=== PATIENT | male | born 1935 | race Caucasian/White ===

== ENCOUNTER 2017-03-07 22:47 | Emergency (ER) | payer MEDICARE, OTHER ==
--- NOTE | 2017-03-08 | XRAY Preliminary Report ---
Exam: XR CHEST 2 VIEW PA/LAT IMPRESSION: Clear lungs. [facility] SITE ID: [id number]
--- NOTE | 2017-03-08 00:01 | XRAY Report ---
EXAM: CHEST RADIOGRAPHY EXAM DATE: 03/07/2017 11:50 PM. CLINICAL HISTORY: Cough and fever. COMPARISON: None. TECHNIQUE: 2 views. FINDINGS: Lungs/Pleura: No focal opacities evident. No pleural effusion. No pneumothorax. Normal volumes. Mediastinum: Normal heart size. Tortuous mildly calcified aorta. Other: Multiple left abdominal clips noted. No compression fractures. IMPRESSION: Clear lungs. [facility] Referring Provider Line: [phone] SITE ID: [id number]
[2017-03-08 00:03] LABS: BASOPHILS # (AUTO) 0.1 10^3/uL (0.0-0.1); BASOPHILS % (AUTO) 0.6 %; EOSINOPHILS # (AUTO) 0.1 10^3/uL (0.0-0.7); EOSINOPHILS % (AUTO) 0.6 %; HCT - HEMATOCRIT 47.2 % (42.0-52.0); HGB - HEMOGLOBIN 15.8 g/dL (14.0-18.0); LYMPHOCYTES # (AUTO) 2.9 10^3/uL (1.5-3.5); LYMPHOCYTES % (AUTO) 21.2 %; MEAN CORPUSCULAR HEMOGLOBIN 29.9 pg (27.0-31.0); MEAN CORPUSCULAR HGB CONC 33.5 g/dL (32.0-36.0); MEAN CORPUSCULAR VOLUME 89.3 fL (80.0-94.0); MONOCYTES # (AUTO) 1.5 10^3/uL (0.0-1.0); MONOCYTES % (AUTO) 10.5 %; NEUTROPHILS # (AUTO) 9.3 10^3/uL (1.5-6.6); NEUTROPHILS % (AUTO) 67.1 %; RED BLOOD COUNT 5.29 10^6/uL (4.70-6.10); RED CELL DISTRIBUTION WIDTH 14.5 % (12.0-15.0); UNCORRECTED WHITE BLOOD COUNT 13.8 x10^3/uL; WHITE BLOOD COUNT 13.8 x10^3/uL (4.8-10.8)
[2017-03-08 00:14] LABS: BILIRUBIN,URINE NEGATIVE (NEGATIVE)
[2017-03-08 00:15] LABS: ALBUMIN/GLOBULIN RATIO 1.7 (1.0-2.2); BILIRUBIN,TOTAL 0.4 mg/dL (0.2-1.0); CALCIUM 9.3 mg/dL (8.5-10.3); CREATININE 1.1 mg/dL (0.6-1.2); POTASSIUM 3.3 mmol/L (3.5-5.0); TOTAL PROTEIN 6.7 g/dL (6.7-8.2)
[2017-03-08 00:19] LABS: UA CHARGE (STRIP ONLY) YES; UR CULTURE IF IND NOT INDICATED
--- NOTE | 2017-03-08 00:45 | ED Physician Documentation ---
PD HPI URI - Stated complaint Stated Complaint: FEVER,NO SPLEEN - Chief complaint Chief Complaint: Fever - History obtained from History obtained from: Patient - History of Present Illness Timing - onset: How many days ago (4) Timing details: Gradual onset Associated symptoms: Fever, Nasal congestion, Rhinorrhea Contributing factors: Travel Similar symptoms before: Has not had sx before Recently seen: Not recently seen - Additional information Additional information: Patient is an 81 year old male with a history of lymphoma, status post splenectomy who is presenting to the emergency department for cough, cold and fever. According to patient and his the patient flew back from [place] on and monday they noticed some cough and sneezing. Family states that the symptoms have been fluctuating over the last few days. They called the recreation superintendent oncologist who suggested that the patient come in for evaluation. Review of Systems Constitutional: reports: Fever, Chills Eyes: denies: Discharge, Irritation Ears: denies: Ear pain, Drainage/discharge Nose: reports: Rhinorrhea / runny nose, Congestion, Sinus pressure / pain Throat: denies: Sore throat Cardiac: denies: Chest pain / pressure Respiratory: reports: Cough. 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, Asplenic PD PAST MEDICAL HISTORY - Past Medical History Past Medical History: Yes Cardiovascular: Hypertension, High cholesterol GI: GERD Other Past Medical History: Non-hodgkins lymphoma - Past Surgical History Past Surgical History: Yes General: Appendectomy, Splenectomy, Other Ortho: Hip replacement HEENT: Tonsil/Adenoidectomy - Allergies Allergies/Adverse Reactions: Allergies Allergy/AdvReac Type Severity Reaction Status Date / Time No Known Drug Allergies Allergy Verified 03/07/17 23:01 - Social History Does the pt smoke?: No Smoking Status: Never smoker Does the pt drink ETOH?: No Does the pt have substance abuse?: No - Immunizations Immunizations are current?: Yes - POLST Patient has POLST: No PD ED PE NORMAL - Vitals Vital signs reviewed: Yes - General General: Alert and oriented X 3, No acute distress, Well developed/nourished - HEENT HEENT: Atraumatic, PERRL, Ears normal, Moist mucous membranes - Neck Neck: Supple, no meningeal sign, No JVD - Cardiac Cardiac: RRR, No murmur - Respiratory Respiratory: No respiratory distress - Abdomen Abdomen: Non tender, Non distended - Derm Derm: Normal color, Warm and dry, No rash - Extremities Extremities: No deformity - Neuro Neuro: Alert and oriented X 3, No motor deficit, No sensory deficit, Normal speech - Psych Psych: Normal mood PD ED PE EXPANDED - HEENT HEENT: Nasal congestion, Rhinorrhea Results - Vitals Vitals: Vital Signs - 24 hr 03/07/17 03/08/17 22:54 00:56 Temperature 37.4 C 36.9 C Heart Rate 84 78 Respiratory 17 18 Rate Blood Pressure 161/84 H 138/68 H O2 Saturation 96 97 Oxygen O2 Source Room air - Labs Labs: Laboratory Tests 03/07/17 03/07/17 03/07/17 23:45 23:45 23:52 WBC 13.8 H RBC 5.29 Hgb 15.8 Hct 47.2 MCV 89.3 MCH 29.9 MCHC 33.5 RDW 14.5 Plt Count 213 MPV 9.0 Neut # 9.3 H Lymph # 2.9 Taylor # 1.5 H Eos # 0.1 Baso # 0.1 Absolute Nucleated RBC 0.01 Nucleated RBC % 0.0 Sodium Potassium Chloride Carbon Dioxide Anion Gap BUN Creatinine Estimated GFR (MDRD) Glucose Lactic Acid Calcium Total Bilirubin AST ALT Alkaline Phosphatase Total Protein Albumin Globulin Albumin/Globulin Ratio Lipase Urine Color YELLOW Urine Clarity CLEAR Urine pH 6.0 Ur Specific [place] 1.015 Urine Protein NEGATIVE Urine Glucose (UA) NEGATIVE Urine Ketones NEGATIVE Urine Occult Blood TRACE-INTA Urine Nitrite NEGATIVE Urine Bilirubin NEGATIVE Urine Urobilinogen 0.2 (NORMAL) Ur Leukocyte Esterase NEGATIVE Ur Microscopic Review NOT INDICATED Urine Culture Comments NOT INDICATED Influenza A (Rapid) POSITIVE H Influenza B (Rapid) Negative Influenza Types A,B Ag + H 03/07/17 03/07/17 23:52 23:52 WBC RBC Hgb Hct MCV MCH MCHC RDW Plt Count MPV Neut # Lymph # Taylor # Eos # Baso # Absolute Nucleated RBC Nucleated RBC % Sodium 131 L Potassium 3.3 L Chloride 95 L Carbon Dioxide 25 Anion Gap 11.0 BUN 17 Creatinine 1.1 Estimated GFR (MDRD) 64 L Glucose 124 H Lactic Acid 0.9 Calcium 9.3 Total Bilirubin 0.4 AST 24 ALT 17 Alkaline Phosphatase 64 Total Protein 6.7 Albumin 4.2 Globulin 2.5 Albumin/Globulin Ratio 1.7 Lipase 30 Urine Color Urine Clarity Urine pH Ur Specific [place] Urine Protein Urine Glucose (UA) Urine Ketones Urine Occult Blood Urine Nitrite Urine Bilirubin Urine Urobilinogen Ur Leukocyte Esterase Ur Microscopic Review Urine Culture Comments Influenza A (Rapid) Influenza B (Rapid) Influenza Types A,B Ag - Rads (name of study) chest x-ray Radiology: Final report received (no acute disease process) PD MEDICAL DECISION MAKING - ED course Complexity details: reviewed old records, reviewed results, re-evaluated patient , considered differential, d/w patient, d/w family ED course: Patient was seen and examined at bedside. labs were drawn. chest x-ray was ordered and urine was collected. Patient's flu swab was performed and was positive. Patient was already out of the window for the use of tamiflu. Patient required no further work up at this time and was stable for discharge with outpatient follow up. Departure - Departure Disposition: 01 Home, Self Care Clinical Impression: Influenza A Condition: Good Instructions: ED Flu Follow-Up: ROWENA SANZ [Primary Care Provider] - Tomorrow Comments: Your symptoms today are being caused by the flu. You should make sure you stay well hydrated and get plenty of rest. You should make sure you wash your hands throughout the day to help prevent the spread of the virus. You can take over the counter cold and flu medicine as needed. You should follow up with your doctor as needed. You may return to the emergency department at any time for new, worsening or uncontrollable symptoms. Discharge Date/Time: 03/08/17 00:56
[2017-03-08 00:59] VITALS: BP 138/68
== END 2017-03-08 00:56 | disposition home or self-care (01) ==
LOC: ED 22:47
DX: J10.1 Influenza due to other identified influenza virus with other respiratory manifestations (principal); I10 Essential (primary) hypertension; Z85.72 Personal history of non-Hodgkin lymphomas
CPT/HCPCS: 36415; 71020; 80053; 81001; 81003; 83605; 83690; 85025; 87040; 87086; 87275; 87276; 99283; 99284

== ENCOUNTER 2019-09-12 13:31 | Outpatient (CLI) | payer MEDICARE, OTHER ==
[2019-09-12 13:58] LABS: BASOPHILS # (AUTO) 0.1 10^3/uL (0.0-0.1); BASOPHILS % (AUTO) 0.4 %; EOSINOPHILS # (AUTO) 0.1 10^3/uL (0.0-0.7); EOSINOPHILS % (AUTO) 0.8 %; LYMPHOCYTES # (AUTO) 4.2 10^3/uL (1.5-3.5); MEAN CORPUSCULAR HEMOGLOBIN 30.9 pg (27.0-31.0); MEAN CORPUSCULAR HGB CONC 34.2 g/dL (32.0-36.0); MEAN CORPUSCULAR VOLUME 90.3 fL (80.0-94.0); MEAN PLATELET VOLUME 10.3 fL (7.4-11.4); MONOCYTES # (AUTO) 0.8 10^3/uL (0.0-1.0); MONOCYTES % (AUTO) 6.8 %; NEUTROPHILS # (AUTO) 6.7 10^3/uL (1.5-6.6); NEUTROPHILS % (AUTO) 56.6 %; PLT - PLATELET COUNT 277 10^3/uL (130-450); RED BLOOD COUNT 4.85 10^6/uL (4.70-6.10); RED CELL DISTRIBUTION WIDTH 15.4 % (12.0-15.0); WHITE BLOOD COUNT 11.9 x10^3/uL (4.8-10.8)
[2019-09-12 14:04] LABS: ALBUMIN 4.3 g/dL (3.2-5.5); ALBUMIN/GLOBULIN RATIO 1.8 (1.0-2.2); BILIRUBIN,TOTAL 0.9 mg/dL (0.2-1.0); CALCIUM 8.8 mg/dL (8.5-10.3); CREATININE 0.9 mg/dL (0.6-1.2); TOTAL PROTEIN 6.7 g/dL (6.7-8.2)
== END 2019-09-12 13:32 | disposition home or self-care (01) ==
LOC: LAB 13:31
PROVIDERS: ATTEND Internal Medicine
DX: C85.90 Non-Hodgkin lymphoma, unspecified, unspecified site (principal)
CPT/HCPCS: 36415; 80053; 83615; 85025

== ENCOUNTER 2020-01-18 08:19 | Outpatient (CLI) | payer MEDICARE, OTHER ==
--- NOTE | 2020-01-19 04:53 | Ultrasound Report ---
PROCEDURE: Carotid Doppler Complete INDICATIONS: TRANSIENT VISUAL LOSS,BILAT TECHNIQUE: Color and pulse Doppler interrogation was performed of both carotid systems, with image documentation and velocity measurements. COMPARISON: None. FINDINGS: The common carotid arteries are patent and demonstrate normal flow velocities. By velocity criteria, no hemodynamically significant stenosis can be seen within the internal carotid arteries. Normal abisai earing waveforms are seen. Atherosclerotic change can be seen. Antegrade flow seen within both verte bral arteries. IMPRESSION: No hemodynamically significant stenosis is seen. Atherosclerotic changes are noted. The estimate of stenosis included in the report of the imaging study was calculated using the NASCET method Reviewed by: Dashawn Becerra MD on 01/18/2020 4:15 PM [facility] Approved by: Dashawn Becerra MD on 01/18/2020 4:15 PM [facility] Station ID: [id number]
== END 2020-01-18 08:20 | disposition home or self-care (01) ==
LOC: DI 08:19
DX: H53.123 Transient visual loss, bilateral (principal)
CPT/HCPCS: 93880

== ENCOUNTER 2020-03-04 09:51 | Outpatient (CLI) | payer MEDICARE, OTHER ==
[2020-03-04 10:24] LABS: BASOPHILS % (AUTO) 0.6 %; EOSINOPHILS % (AUTO) 1.2 %; HGB - HEMOGLOBIN 15.5 g/dL (14.0-18.0); LYMPHOCYTES % (AUTO) 40.8 %; MEAN CORPUSCULAR HEMOGLOBIN 30.3 pg (27.0-31.0); MEAN CORPUSCULAR HGB CONC 33.2 g/dL (32.0-36.0); MEAN CORPUSCULAR VOLUME 91.2 fL (80.0-94.0); MEAN PLATELET VOLUME 10.2 fL (7.4-11.4); MONOCYTES % (AUTO) 7.9 %; PLT - PLATELET COUNT 260 10^3/uL (130-450); RED BLOOD COUNT 5.12 10^6/uL (4.70-6.10); RED CELL DISTRIBUTION WIDTH 15.6 % (12.0-15.0); WHITE BLOOD COUNT 10.9 x10^3/uL (4.8-10.8)
[2020-03-04 10:27] LABS: ABNORMAL LYMPHS % (MANUAL) 0 %
[2020-03-04 13:48] LABS: BAND NEUTROPHILS % (MANUAL) 1 %; BASOPHILS # (MANUAL) 0.2 10^3/uL (0-0.1); BASOPHILS % (MANUAL) 2 %; DIFFERENTIAL COMMENT MANUAL DIFFERENTIAL; LYMPHOCYTES # (MANUAL) 4.1 10^3/uL (1.5-3.5); LYMPHOCYTES % (MANUAL) 2 %; MONOCYTES # (MANUAL) 0.4 10^3/uL (0.0-1.0)
== END 2020-03-04 09:52 | disposition home or self-care (01) ==
LOC: LAB 09:51
PROVIDERS: ATTEND Internal Medicine Hematology
DX: C85.90 Non-Hodgkin lymphoma, unspecified, unspecified site (principal)
CPT/HCPCS: 36415; 85025

== ENCOUNTER 2020-09-09 09:35 | Outpatient (CLI) | payer MEDICARE, OTHER ==
[2020-09-09 09:56] LABS: BASOPHILS % (AUTO) 0.4 %; EOSINOPHILS # (AUTO) 0.1 10^3/uL (0.0-0.7); EOSINOPHILS % (AUTO) 0.9 %; HGB - HEMOGLOBIN 15.4 g/dL (14.0-18.0); LYMPHOCYTES # (AUTO) 3.2 10^3/uL (1.5-3.5); LYMPHOCYTES % (AUTO) 30.4 %; MEAN CORPUSCULAR HEMOGLOBIN 29.7 pg (27.0-31.0); MEAN CORPUSCULAR HGB CONC 32.8 g/dL (32.0-36.0); MEAN CORPUSCULAR VOLUME 90.6 fL (80.0-94.0); MEAN PLATELET VOLUME 10.3 fL (7.4-11.4); MONOCYTES # (AUTO) 0.6 10^3/uL (0.0-1.0); MONOCYTES % (AUTO) 5.2 %; NEUTROPHILS # (AUTO) 6.6 10^3/uL (1.5-6.6); NEUTROPHILS % (AUTO) 62.6 %; PLT - PLATELET COUNT 291 10^3/uL (130-450); RED BLOOD COUNT 5.19 10^6/uL (4.70-6.10); RED CELL DISTRIBUTION WIDTH 15.9 % (12.0-15.0); WHITE BLOOD COUNT 10.5 x10^3/uL (4.8-10.8)
[2020-09-09 10:15] LABS: ALBUMIN 4.5 g/dL (3.2-5.5); BILIRUBIN,TOTAL 0.9 mg/dL (0.2-1.0); CALCIUM 9.4 mg/dL (8.5-10.3); CREATININE 0.9 mg/dL (0.6-1.2); POTASSIUM 3.7 mmol/L (3.5-5.0); TOTAL PROTEIN 6.7 g/dL (6.7-8.2)
== END 2020-09-09 09:36 | disposition home or self-care (01) ==
LOC: LAB 09:35
PROVIDERS: ATTEND Internal Medicine
DX: C85.90 Non-Hodgkin lymphoma, unspecified, unspecified site (principal)
CPT/HCPCS: 36415; 80053; 85025

== ENCOUNTER 2021-02-24 08:56 | Outpatient (CLI) | payer MEDICARE, OTHER | END 2021-02-24 08:57 | disposition home or self-care (01) | LOC: DI 08:56 | PROVIDERS: ATTEND Ophthalmology | DX: H53.123 Transient visual loss, bilateral (principal); I51.7 Cardiomegaly; I49.3 Ventricular premature depolarization; I35.8 Other nonrheumatic aortic valve disorders; I77.89 Other specified disorders of arteries and arterioles | CPT/HCPCS: 93306 ==

== ENCOUNTER 2023-10-14 10:52 | Outpatient (CLI) | payer MEDICARE, OTHER | END 2023-10-14 23:59 | disposition critical access hospital (66) | LOC: EMS 10:52 | DX: R06.00 Dyspnea, unspecified (principal); R09.89 Other specified symptoms and signs involving the circulatory and respiratory systems; R04.2 Hemoptysis; R07.89 Other chest pain | CPT/HCPCS: A0425; A0427 ==

== ENCOUNTER 2023-10-14 11:00 | Emergency (ER) | payer MEDICARE, OTHER ==
--- NOTE | 2023-10-14 11:10 | ED Physician Documentation ---
PD HPI DYSPNEA - Stated complaint Stated Complaint: DIFF BREATHING - Chief complaint Chief Complaint: Resp - History obtained from History obtained from: Patient, Family (spouse), EMS - History of Present Illness Timing - onset: How many days ago (yesterday) Timing - onset during: Light activity, Exertion Timing - duration: Days (1-2) Timing - details: Gradual onset, Still present (much worse this morning) Inciting event(s): URI (2-3 days of some cough and sputum production, with this morning some blood tinge color to it.) Improved by: Rest, Sitting up Worsened by: Exertion, Laying flat, Coughing Associated symptoms: Cough, Hemoptysis (today), Wheezing. No: Chest pain / discomfort, Bilateral edema Similar symptoms before: Has not had sx before Recently seen: Not recently seen Review of Systems Constitutional: reports: Myalgias, Fatigue. denies: Fever Nose: reports: Congestion Throat: denies: Sore throat Cardiac: denies: Chest pain / pressure, Pedal edema, Calf pain Respiratory: reports: Dyspnea, Cough, Wheezing PD PAST MEDICAL HISTORY - Past Medical History Cardiovascular: Hypertension, High cholesterol, Atrial fibrillation, Other (History of atrial fibrillation and is on a anticoagulant. No recent problems. Had an echo in 2020 which showed normal ejection fraction of 60%. Sees Dr. Nunez at [facility] for cardiology.) Respiratory: None Neuro: None Endocrine/Autoimmune: None GI: GERD - Past Surgical History Past Surgical History: Yes General: Appendectomy, Splenectomy, Other Ortho: Hip replacement HEENT: Tonsil/Adenoidectomy - Allergies Allergies/Adverse Reactions: Allergies Allergy/AdvReac Type Severity Reaction Status Date / Time No Known Drug Allergies Allergy Verified 10/14/23 11:08 - Social History Does the pt smoke?: No Smoking Status: Never smoker Does the pt drink ETOH?: No Does the pt have substance abuse?: No - Immunizations Immunizations are current?: Yes - POLST Patient has POLST: No PD ED PE NORMAL - Vitals Vital signs reviewed: Yes (tachypnea and hypoxic) - General General: Alert and oriented X 3, Well developed/nourished, Other (somewhat anxious but conversant. Able to talk in partial sentences. ) - HEENT HEENT: Atraumatic - Neck Neck: Supple, no meningeal sign, No adenopathy, Other (JVD noted at 45 degrees, not at 60. ) - Cardiac Cardiac: RRR, No murmur - Respiratory Respiratory: No: Clear bilaterally (diffuse exp wheezing and some coarse sounds left in particular. Some wet sounds both bases. ) - Abdomen Abdomen: Soft, Non tender - Derm Derm: Normal color, Warm and dry - Extremities Extremities: No tenderness to palpate, No edema, No calf tenderness / cord - Neuro Neuro: Alert and oriented X 3, No motor deficit, Normal speech Results - Vitals Vitals: Vital Signs - 24 hr 10/14/23 10/14/23 10/14/23 11:05 11:06 11:08 Temperature 36.7 C Heart Rate 108 H 110 H Respiratory 48 H 48 H 32 H Rate Blood Pressure 90/43 L 106/88 H O2 Saturation 87 L 86 L 99 If not protocol 4 6 : Oxygen Flow, liters/minute 10/14/23 10/14/23 10/14/23 11:37 11:38 12:08 Temperature 36.9 C Heart Rate 88 106 H 106 H Respiratory 22 40 H 30 H Rate Blood Pressure 106/88 H 117/73 O2 Saturation 92 94 If not protocol : Oxygen Flow, liters/minute 10/14/23 10/14/23 10/14/23 12:12 12:30 13:00 Temperature Heart Rate 106 H 106 H 106 H Respiratory 32 H 27 H Rate Blood Pressure 113/68 105/70 O2 Saturation 92 92 If not protocol 12 : Oxygen Flow, liters/minute 10/14/23 10/14/23 13:30 14:00 Temperature 36.8 C 36.8 C Heart Rate 106 H 95 Respiratory 30 H 28 H Rate Blood Pressure 105/89 H 118/85 H O2 Saturation 92 92 If not protocol : Oxygen Flow, liters/minute Oxygen O2 Source BIPAP Oxygen Flow Rate 6 - EKG (time done) 11:23 EKG releavant findings:: EKG personally interpreted by author of this note. Relevant findings are: Rate: Rate (enter#) (102) Rhythm: Sinus tachycardia [address] [place]: Normal Intervals: Normal OR, RBBB QRS: Normal Ischemia: ST elevation c/w repol, ST depression. No: Normal ST segments Compare to prior EKG: Old EKG unavailable - Labs Labs: Laboratory Tests 06/22/24 06/22/24 06/22/24 11:23 11:32 11:32 WBC 22.8 H RBC 4.62 L Hgb 13.6 L Hct 41.6 L MCV 90.0 MCH 29.4 MCHC 32.7 RDW 15.8 H Plt Count 276 MPV 10.8 Neut # (Auto) Not Reportable Lymph # (Auto) Not Reportable [place] # (Auto) Not Reportable Eos # (Auto) Not Reportable Baso # (Auto) Not Reportable Absolute Nucleated RBC Not Reportable Total Counted 100 Band Neuts % (Manual) 7 Abnorm Lymph % (Manual) 0 Nucleated RBC % Not Reportable Neutrophils # (Manual) 21.0 H Lymphocytes # (Manual) 0.9 L Monocytes # (Manual) 0.7 Eosinophils # (Manual) 0.2 Basophils # (Manual) 0.0 Differential Comment MANUAL DIFFERENTIAL Manual Slide Review Indicated WBC Morphology 2+ TOXIC GRANULATION Platelet Estimate NORMAL (130-450,000) Platelet Morphology NORMAL APPEARANCE RBC Morph Micro Appear 2+ ACANTHOCYTES Sodium 130 L Potassium 4.2 Chloride 97 L Carbon Dioxide 20 L Anion Gap 13.0 BUN 17 Creatinine 1.1 Estimated GFR (MDRD) 63 L Glucose 217 H Calcium 9.7 Magnesium 1.8 Total Bilirubin 0.8 AST 32 ALT 25 Alkaline Phosphatase 59 Troponin I High Sens B-Natriuretic Peptide Total Protein 6.5 Albumin 3.9 Globulin 2.6 Albumin/Globulin Ratio 1.5 Lipase < 10 L Nasal Adenovirus (PCR) NOT DETECTED Nasal B. parapertussis DNA (PCR) NOT DETECTED Nasal Coronavir 229E PCR NOT DETECTED Nasal Coronavir HKU1 PCR NOT DETECTED Nasal Coronavir NL63 PCR NOT DETECTED Nasal Coronavir OC43 PCR NOT DETECTED Nasal Enterovir/Rhinovir PCR NOT DETECTED Nasal Influenza B PCR NOT DETECTED Nasal Influenza A PCR NOT DETECTED Nasal Parainfluen 1 PCR NOT DETECTED Nasal Parainfluen 2 PCR NOT DETECTED Nasal Parainfluen 3 PCR NOT DETECTED Nasal Parainfluen 4 PCR NOT DETECTED Nasal RSV (PCR) NOT DETECTED Nasal B.pertussis DNA PCR NOT DETECTED Nasal C.pneumoniae (PCR) NOT DETECTED Cam Human Metapneumo PCR NOT DETECTED Nasal M.pneumoniae (PCR) NOT DETECTED Nasal SARS-CoV-2 (PCR) NOT DETECTED 10/14/23 10/14/23 11:32 11:32 WBC RBC Hgb Hct MCV MCH MCHC RDW Plt Count MPV Neut # (Auto) Lymph # (Auto) [place] # (Auto) Eos # (Auto) Baso # (Auto) Absolute Nucleated RBC Total Counted Band Neuts % (Manual) Abnorm Lymph % (Manual) Nucleated RBC % Neutrophils # (Manual) Lymphocytes # (Manual) Monocytes # (Manual) Eosinophils # (Manual) Basophils # (Manual) Differential Comment Manual Slide Review WBC Morphology Platelet Estimate Platelet Morphology RBC Morph Micro Appear Sodium Potassium Chloride Carbon Dioxide Anion Gap BUN Creatinine Estimated GFR (MDRD) Glucose Calcium Magnesium Total Bilirubin AST ALT Alkaline Phosphatase Troponin I High Sens 2572.4 H* B-Natriuretic Peptide 1669 H Total Protein Albumin Globulin Albumin/Globulin Ratio Lipase Nasal Adenovirus (PCR) Nasal B. parapertussis DNA (PCR) Nasal Coronavir 229E PCR Nasal Coronavir HKU1 PCR Nasal Coronavir NL63 PCR Nasal Coronavir OC43 PCR Nasal Enterovir/Rhinovir PCR Nasal Influenza B PCR Nasal Influenza A PCR Nasal Parainfluen 1 PCR Nasal Parainfluen 2 PCR Nasal Parainfluen 3 PCR Nasal Parainfluen 4 PCR Nasal RSV (PCR) Nasal B.pertussis DNA PCR Nasal C.pneumoniae (PCR) Cam Human Metapneumo PCR Nasal M.pneumoniae (PCR) Nasal SARS-CoV-2 (PCR) - Rads (name of study) chest xray Relevant Findings:: Prelim report reviewed, EMP independent interpretation of test (interstitial infiltrate mainly left sided; consider some superimposed edema. ) PD Medical Decision Making - ED course Complexity details: reviewed results (Chest x-ray appears likely infiltrates in the left mid lung field to upper lung field. Also some general interstitial e miriam.), considered differential (Cough with sputum production progressing over 2 to 3 days with now hemoptysis and wheezing and dyspnea. No history of CHF nor asthma/COPD. Does feel general weakness and chills without fevers.), d/w patient Reviewed Lab Results: The patient presented with respiratory distress with tachypnea and hypoxia. Initial focus was on evaluating the level of oxygen support. He did appear to be ventilating adequately and in fact tachypneic. He did not appear tired. Initially and nasal cannula was providing reasonable oxygenation to the low 90s but was at 4 to 6 L. He then was having a little bit more trouble breathing and we changed to a partial facemask. Chest x-ray showed an apparent pneumonia to the left upper lung field but also s ome diffuse interstitial changes. No effusions. No pneumothorax. He did get a DuoNeb treatment and had gotten an albuterol treatment en route by EMS. The added DuoNeb here provided some improvement in his wheezing and dyspnea but he was still fairly tachypneic. At that point in conjunction with respiratory therapy, we decided on attempting BiPAP. The patient tolerated this quite well and his respiratory rate improved. He is now down to approximately 20 respiratory rate and maintaining oxygenation in the mid 90s. During this time he was on the heart monitor which showed a sinus rhythm. He does have history of A-fib. We were subsequently able to get an EKG and this showed some ischemic changes primarily in the anterior leads and also aVR. This gave concern for a left main ischemia and it does have an appearance of possible STEMI. He does have a right bundle branch block which initially I thought some repolarization changes but on reinspection, I would say I did not appreciate the pattern to it with more appearance of a posterior MA. About this time blood test were resulting with a quite elevated troponin of over 2000 and a BNP of over 1600. No history of heart failure. At this point seeing the acute heart injury at a higher level than I would expect from just demand ischemia along with the patterned EKG changes, I did talk with [facility] emergency attending Or if it and I texted the EKG to him. In conjunction with the cardiology there, they did say to except the patient in acute transfer. I advised the patient and his . He is appearing more comfortable and breathing and remains on the BiPAP. He has been given Lasix 20 mg IV with good diuresing due to apparent overlay of pulmonary edema. He was also given Rocephin and Zithromax for concern of pneumonia. I also had him on a heparin drip and was given aspirin. At this point the patient is transferred in critical but stable condition by [facility]. ED course: He is having tachypnea and hypoxia. He has been noticing this increasingly over a couple of days. Worse with laying flat. No edema in the legs. His symptoms sound infectious in pneumonialike. No general viral illness per se but we will check a PCR. Chest x-ray suggestive of pneumonia with some edema as well. He does have diffuse wheezing and some coarse sounds particularly on the left. Given a nebulizer treatment. He is still hypoxic on nasal cannula and partial rebreather. We did initiate BiPAP and he is feeling comfortable with this and his oxygenation is good and he is breathing more comfortably. BNP and troponin both came back elevated. Unclear whether this is demand ischemia. His EKG shows a right bundle with repolarization changes and some ischemic appearance. No obvious ST elevations. He is going to need more evaluation than his capable at our facility and we will initiate transfer. His director of research center is at [facility] so we will try their first but any facility with cardiology testing availability. He would likely need echocardiogram more urgently. We will not have hours available for 3 days. He would need risk stratification as well and potential for heart cath. He is given a DuoNeb treatment as well as some IV Lasix and initiated on heparin with aspirin. He had been on a DOAC for his A-fib. He did have some sputum production here with tingeing of blood but no satya hemoptysis. - Critical Care Time(min): 55 Time Includes: Direct patient care, Reassess patient, Document care, Coordinate care, Medical consult, Family consult for tx dec Data interpretation: Labs, Pulse ox, CXR Procedures excluded from critical care time: EKG Departure - Departure Disposition: 02 Transfer Acute Care Hosp Clinical Impression: Hypoxia, Myocardial injury Dyspnea Qualifiers: Dyspnea type: shortness of breath Qualified Code(s): R06.02 - Shortness of breath; R06.00 - Dyspnea, unspecified; R06.01 - Orthopnea Pneumonia Qualifiers: Pneumonia type: due to unspecified organism Laterality: left Lung location: upper lobe of lung Qualified Code(s): J18.9 - Pneumonia, unspecified organism STEMI (ST elevation myocardial infarction) Qualifiers: Involved coronary artery: unspecified coronary artery Qualified Code(s): I21.3 - ST elevation (STEMI) myocardial infarction of unspecified site Condition: Serious Forms: PCP List
[2023-10-14] MEDS: IPRATROPIUM/ALBUTEROL 3 ML NEB INH STA (11:33)
[2023-10-14 11:37] LABS: BASOPHILS % (AUTO) 0.1 %; HCT - HEMATOCRIT 41.6 % (42.0-52.0); HGB - HEMOGLOBIN 13.6 g/dL (14.0-18.0); LYMPHOCYTES % (AUTO) 4.7 %; MEAN CORPUSCULAR HEMOGLOBIN 29.4 pg (27.0-31.0); MEAN CORPUSCULAR HGB CONC 32.7 g/dL (32.0-36.0); MEAN PLATELET VOLUME 10.8 fL (7.4-11.4); MONOCYTES % (AUTO) 4.5 %; PLT - PLATELET COUNT 276 10^3/uL (130-450); RED BLOOD COUNT 4.62 10^6/uL (4.70-6.10); RED CELL DISTRIBUTION WIDTH 15.8 % (12.0-15.0); WHITE BLOOD COUNT 22.8 x10^3/uL (4.8-10.8)
[2023-10-14 11:41] LABS: SLIDE REVIEW? Indicated
[2023-10-14 11:42] LABS: ABNORMAL LYMPHS % (MANUAL) 0 %
[2023-10-14 11:51] LABS: ALBUMIN 3.9 g/dL (3.2-5.5); ALBUMIN/GLOBULIN RATIO 1.5 (1.0-2.2); ALKALINE PHOSPHATASE 59 IU/L (42-121); ALT ALANINE AMINOTRANSFERASE 25 IU/L (10-60); AST ASPARTATE AMINOTRANSFERASE 32 IU/L (10-42); BILIRUBIN,TOTAL 0.8 mg/dL (0.2-1.0); BUN - BLOOD UREA NITROGEN 17 mg/dL (6-20); CALCIUM 9.7 mg/dL (8.5-10.3); CARBON DIOXIDE - CO2 20 mmol/L (21-32); CHLORIDE 97 mmol/L (101-111); CREATININE 1.1 mg/dL (0.6-1.3); GFR - MDRD 63 (>89); GLUCOSE 217 mg/dL (74-104); LIPASE < 10 U/L (11-82); MAGNESIUM 1.8 mg/dL (1.7-2.3); POTASSIUM 4.2 mmol/L (3.5-4.5); SODIUM 130 mmol/L (135-145); TOTAL PROTEIN 6.5 g/dL (6.4-8.9)
[2023-10-14 12:01] LABS: BAND NEUTROPHILS % (MANUAL) 7 %; EOSINOPHILS # (MANUAL) 0.2 10^3/uL (0-0.7); LYMPHOCYTES # (MANUAL) 0.9 10^3/uL (1.5-3.5); LYMPHOCYTES % (MANUAL) 4 %; MONOCYTES # (MANUAL) 0.7 10^3/uL (0.0-1.0)
[2023-10-14] MEDS: cefTRIAXone 1 GM VIAL IVP STA (12:01)
[2023-10-14 12:07] LABS: PLATELET ESTIMATE, MANUAL NORMAL (130-450,000) (NORMAL); PLATELET MORPHOLOGY NORMAL APPEARANCE (NORMAL)
[2023-10-14 12:09] LABS: DIFFERENTIAL COMMENT MANUAL DIFFERENTIAL; WBC MORPHOLOGY (MULTIPLE) 2+ TOXIC GRANULATION (NORMAL)
[2023-10-14] MEDS: AZITHROMYCIN INJ 500 MG in SODIUM CHLORIDE 0.9% 250 ML IV STA (12:11)
[2023-10-14 12:23] LABS: B. PARAPERTUSSIS- RESP PCR PAN NOT DETECTED; B. PERTUSSIS- RESP PCR PANEL NOT DETECTED; C. PNEUMONIAE- RESP PCR PANEL NOT DETECTED; CORONAVIRUS 229E-RESP PCR NOT DETECTED; CORONAVIRUS HKU1-RESP PCR NOT DETECTED; CORONAVIRUS NL63-RESP PCR NOT DETECTED; CORONAVIRUS OC43-RESP PCR NOT DETECTED; HUMAN METAPNEUMOVIRUS NOT DETECTED; INFLUENZA A- RESP PCR PANEL NOT DETECTED; INFLUENZA B - RESP PCR PANEL NOT DETECTED; M. PNEUMONIAE- RESP PCR PANEL NOT DETECTED; PARAINFLUENZA VIRUS 1 NOT DETECTED; PARAINFLUENZA VIRUS 2 NOT DETECTED; PARAINFLUENZA VIRUS 3 NOT DETECTED; PARAINFLUENZA VIRUS 4 NOT DETECTED; RHINOVIRUS/ENTEROVIRUS NOT DETECTED; RSV- RESP PCR PANEL NOT DETECTED; SARS-CoV-2 -RESP PCR PANEL NOT DETECTED
--- NOTE | 2023-10-14 12:27 | XRAY Report ---
PROCEDURE: Chest 1V INDICATIONS: dyspnea/cough TECHNIQUE: One view of the chest was acquired. COMPARISON: Chest radiograph 03/07/2017. FINDINGS: Surgical changes and devices: None. Lungs and pleura: Trace right pleural effusion. Left costophrenic angle is out of the [id number] and small pleural effusion cannot be excluded. No significant pneumothorax. Increased interstitial ma rkings likely reflect pulmonary edema. Left greater than right multifocal opacities. Mediastinum: Mediastinal contours appear normal. Heart size is normal. Bones and chest wall: No suspicious bony lesions. Overlying soft tissues appear unremarkable. IMPRESSION: Bilateral diffuse lung disease concerning for pneumonia. Increased interstitial markings likely repre sent superimposition of mild pulmonary edema. Reviewed by: Brenda Rosas MD, PhD on 10/14/2023 11:25 AM [facility]O Approved by: Brenda Rosas MD, PhD on 10/14/2023 11:25 AM [facility]O Station ID: [id number]
[2023-10-14 12:41] VITALS: O2SAT 92
[2023-10-14] MEDS: ASPIRIN CHEW 81 MG TABLET PO STA (12:55)
[2023-10-14] MEDS: FUROSEMIDE 20 MG/2 ML VIAL IVP STA (12:59)
[2023-10-14] MEDS: HEPARIN 25000UNITS/500ML (D5W) 25,000 UNIT/500 ML BAG IV SCH (13:04)
[2023-10-14 14:04] VITALS: BP 118/85
== END 2023-10-14 14:44 | disposition short-term general hospital (02) ==
LOC: EDUNIT# → ED 11:00
DX: J18.9 Pneumonia, unspecified organism (principal); I21.3 ST elevation (STEMI) myocardial infarction of unspecified site; R06.01 Orthopnea; R06.03 Acute respiratory distress; I45.2 Bifascicular block; R94.31 Abnormal electrocardiogram [ECG] [EKG]; R00.0 Tachycardia, unspecified; I10 Essential (primary) hypertension; R79.89 Other specified abnormal findings of blood chemistry; Z20.818 Contact with and (suspected) exposure to other bacterial communicable diseases; Z20.822 Contact with and (suspected) exposure to COVID-19; Z20.828 Contact with and (suspected) exposure to other viral communicable diseases
CPT/HCPCS: 36415; 71045; 80053; 83690; 83735; 83880; 84484; 85025; 87633; 93005; 94640; 94660; 96365; 96375; 99291; A9270